=== PATIENT | female | born 1980 | race Asian ===

== ENCOUNTER → 2016-06-28 | Outpatient (CLI) | payer OTHER, MEDICAID ==
--- NOTE | 2016-06-28 17:29 | REP ---
OB ULTRASOUND: 06/28/2016 Real-time sonographic evaluation of the gravid uterus is performed. There is a single living intrauterine gestation with estimated gestational age of 23 weeks 2 days. EDC 10/23/2016. BPD 56 mm = 23 weeks 0 days HC 216 mm = 23 weeks 4 days AC 201 mm = 24 weeks 5 days Femur length 41 mm = 23 weeks 2 days HC/AC ratio 1.08 within normal range. Estimated weight 650 grams at the 67th percentile. Cervix is closed and measures 4.0 cm in length. heart rate 163 beats per minute. SEEN/GROSSLY UNREMARKABLE Lateral ventricles Yes Posterior fossa Yes Upper lip Yes Four-chamber heart Yes LVOT Possible bilateral choroid plexus cysts, 5x2mm RVOT Yes Stomach Yes Cord insertion Yes Three vessel cord Yes Kidneys Yes Bladder Yes Spine Yes position: Variable. Placenta: Posterior and grade 0 with no previa or abruption. Amniotic fluid: Within normal limits. Signed by Tyler Cao MD 06/29/2016 09:40 A
[2016-06-28 19:34] LABS: BASO % 0.3 % (0.0-1.0); EOS # 0.1 K/mm3 (0.0-0.50); EOS % 1.2 % (0.0-3.0); LARGE UNSTAINED CELL # 0.1 K/mm3 (0.0-0.4); LYMPH # 1.2 K/mm3 (1.5-4.5); LYMPH % 13.2 % (24.0-44.0); MEAN CORPUSCULAR HEMOGLOBIN 16.4 pg (27.0-33.0); MEAN CORPUSCULAR VOLUME 65.6 fl (80.0-96.0); MONO # 0.4 K/mm3 (0.0-0.8); MONO % 4.4 % (0.0-5.0); NEUTROPHILS # 6.9 K/mm3 (1.8-7.7); PLATELET COUNT, AUTOMATED 403 k/mm3 (150-450); RED CELL DISTRIBUTION WIDTH 25.4 % (11.5-14.5); WHITE BLOOD COUNT 8.6 K/mm3 (4.0-10.0)
[2016-06-28 19:41] LABS: ADD MORPHOLOGY? YES
[2016-06-28 20:42] LABS: HYPOCHROMASIA 3+; MICROCYTOSIS 3+
[2016-06-28 20:43] LABS: ANISOCYTOSIS 3+; POIKILOCYTOSIS 1+
[2016-06-28 20:44] LABS: OVALOCYTES 1+
[2016-06-30 11:16] LABS: HBsAg Prenatal NEGATIVE (NEGATIVE)
== END ==
LOC: M SMT 13:53
PROVIDERS: ATTEND Obstetrics & Gynecology
DX: Z36 Encounter for antenatal screening of mother (principal); Z3A.23 23 weeks gestation of pregnancy

== ENCOUNTER → 2016-06-30 | Outpatient (CLI) | payer OTHER ==
[2016-06-30 19:28] LABS: PERCENT SATURATION 30.8 % (13.2-37.4)
[2016-07-05 14:37] LABS: HEMOGLOBIN A 98.2 % (94.0-98.0)
== END ==
LOC: M SMT 12:38
PROVIDERS: ATTEND Obstetrics & Gynecology
DX: D64.9 Anemia, unspecified (principal)

== ENCOUNTER → 2016-07-19 | Outpatient (CLI) | payer OTHER ==
[2016-07-22 00:07] LABS: MUMPS VIRUS IgM ANTIBODY <0.80 AU (0.00-0.79)
== END ==
LOC: M SMT 11:34
PROVIDERS: ATTEND Family Medicine Adult Medicine
DX: Z34.82 Encounter for supervision of other normal pregnancy, second trimester (principal)

== ENCOUNTER → 2016-08-13 | Outpatient (CLI) | payer OTHER, SELFPAY ==
[2016-08-13 18:09] LABS: MEAN CORPUSCULAR HEMOGLOBIN 26.4 pg (27.0-33.0); MEAN CORPUSCULAR HGB CONC 30.6 g/dl (32.0-36.5); MEAN CORPUSCULAR VOLUME 86.3 fl (80.0-96.0); PLATELET COUNT, AUTOMATED 218 k/mm3 (150-450); RED CELL DISTRIBUTION WIDTH 24.9 % (11.5-14.5); WHITE BLOOD COUNT 7.7 K/mm3 (4.0-10.0)
[2016-08-13 21:46] LABS: ANISOCYTOSIS 4+; BASOPHILS 1 % (0-4); EOSINOPHILS 2 % (0-5); HYPOCHROMASIA 1+
[2016-08-13 21:47] LABS: ACANTHOCYTES 1+; OVALOCYTES 2+; POIKILOCYTOSIS 2+
== END ==
LOC: M SMT 10:32
PROVIDERS: ATTEND Advanced Practice Midwife
DX: Z36 Encounter for antenatal screening of mother (principal)

== ENCOUNTER → 2016-09-08 | Outpatient (REF) | payer MEDICAID | LOC: M LAB REF 17:25 | PROVIDERS: ATTEND Specialist | DX: Z36 Encounter for antenatal screening of mother (principal) ==

== ENCOUNTER → 2016-09-23 | Outpatient (REF) | payer MEDICAID ==
[~2016-09-23] MED LIST: ACET50TA PO; IBUP-1114 PO; IRON50TA PO; PRENTAB9 PO
== END ==
LOC: M LAB REF 13:05
PROVIDERS: ATTEND Advanced Practice Midwife
DX: Z34.83 Encounter for supervision of other normal pregnancy, third trimester (principal)

== ENCOUNTER → 2016-10-01 | Outpatient (REF) | payer MEDICAID, OTHER ==
[2016-10-01 18:25] LABS: BASO % 0.4 % (0.0-1.0); EOS # 0.1 K/mm3 (0.0-0.50); LARGE UNSTAINED CELL # 0.2 K/mm3 (0.0-0.4); LARGE UNSTAINED CELL % 1.6 % (0.0-4.0); LYMPH # 1.2 K/mm3 (1.5-4.5); LYMPH % 13.1 % (24.0-44.0); MEAN CORPUSCULAR HGB CONC 34.3 g/dl (32.0-36.5); MEAN CORPUSCULAR VOLUME 90.5 fl (80.0-96.0); MONO # 0.4 K/mm3 (0.0-0.8); MONO % 4.6 % (0.0-5.0); NEUTROPHILS # 7.5 K/mm3 (1.8-7.7); NEUTROPHILS % 79.2 % (36.0-66.0); PLATELET COUNT, AUTOMATED 175 k/mm3 (150-450); RED CELL DISTRIBUTION WIDTH 17.6 % (11.5-14.5); WHITE BLOOD COUNT 9.4 K/mm3 (4.0-10.0)
== END ==
LOC: M LABSMT 17:06
PROVIDERS: ATTEND Advanced Practice Midwife
DX: O99.013 Anemia complicating pregnancy, third trimester (principal); Z3A.00 Weeks of gestation of pregnancy not specified

== ENCOUNTER 2016-10-04 07:14 | Outpatient (CLI) | payer MEDICAID, OTHER ==
[~2016-10-04] VITALS: Ht 154.9 cm; Wt 64.0 kg
[2016-10-04] MEDS ORDERED: IRON50TA PO (07:21)
[2016-10-04] MEDS ORDERED: PRENTAB9 PO (07:21)
[2016-10-04 07:29] VITALS: BP 112/76
[2016-10-04] MEDS ORDERED: LACTATED RINGER'S 1000 ML IV STA (07:41)
[2016-10-04] MEDS ORDERED: PENICILLIN G POTASSIUM IV 5 MU in D5W MINI-BAG PLUS 100 ML IV STA (07:43)
[2016-10-04] MEDS ORDERED: LR 1,000 ML IV SCH (08:00)
[2016-10-04 08:12] LABS: MEAN CORPUSCULAR HEMOGLOBIN 31.5 pg (27.0-33.0); MEAN CORPUSCULAR HGB CONC 35.1 g/dl (32.0-36.5); MEAN CORPUSCULAR VOLUME 89.6 fl (80.0-96.0); RED CELL DISTRIBUTION WIDTH 17.7 % (11.5-14.5); WHITE BLOOD COUNT 8.6 K/mm3 (4.0-10.0)
[2016-10-04 08:59] VITALS: BP 111/75
[2016-10-04] MEDS ORDERED: BUTORPHANOL 2 MG/ML INJ (J0595) IV ONE (11:15)
[2016-10-04] MEDS ORDERED: PROMETHAZINE INJ 25 MG/ML VIAL (J2550) IV ONE (11:15)
[2016-10-04] MEDS: PENICILLIN G POTASSIUM IV 2.5 MU in D5W 100 ML IV SCH ×2 (12:19→16:06)
[2016-10-04 16:10] VITALS: BP 118/71
== END 2016-10-04 17:38 | disposition home or self-care (01) ==
LOC: M LDO 07:14
PROVIDERS: ATTEND Advanced Practice Midwife
DX: O62.0 Primary inadequate contractions (principal); Z3A.37 37 weeks gestation of pregnancy

== ENCOUNTER 2016-10-05 14:56 | Inpatient (IN) | payer OTHER ==
[~2016-10-05] VITALS: Ht 154.9 cm; Wt 65.0 kg
[2016-10-05] VITALS (21 sets, daily range): BP systolic 105–129; BP diastolic 52–84
[~2016-10-05 14:56] MED LIST changes: -ACET50TA PO; -IBUP-1114 PO
[2016-10-05] MEDS ORDERED: AMPICILLIN SOD 2 GM in D5W MINI-BAG PLUS 100 ML IV STA (15:38)
[2016-10-05 16:07] LABS: MEAN CORPUSCULAR HEMOGLOBIN 30.8 pg (27.0-33.0); MEAN CORPUSCULAR VOLUME 90.4 fl (80.0-96.0); RED CELL DISTRIBUTION WIDTH 17.6 % (11.5-14.5); WHITE BLOOD COUNT 8.7 K/mm3 (4.0-10.0)
[2016-10-05] MEDS ORDERED: LR 1,000 ML IV SCH (16:39)
[2016-10-05] MEDS ORDERED: FENTANYL 2MCG/ML ROPIVACAINE 0.2% IN 0.9% NACL 200ML IVBAG As Ordered ONE (16:47)
--- NOTE | 2016-10-05 16:49 | HPE ---
DATE OF ADMISSION: 10/05/2016 REASON FOR ADMISSION: Labor. HISTORY OF PRESENT ILLNESS: Ms. Mariee is a 35-year-old 2, Para 1 who presents at 37 weeks 3 days estimated gestational age by 23 week ultrasound who complains of contractions. Ms. Mariee was initially seen yesterday morning and was evaluated for several hours. She had initial cervical exam at 3 cm dilated, 80% effaced, -2 station and was monitored with no further change after 8 hours. She was discharged home. She reports that her contractions had spaced out, and she was able to sleep throughout the night. Earlier this morning, her contractions did return, and now increased in frequency to approximately every 2 minutes for the last 2 hours. She reports some bloody show but denies and vaginal bleeding or leakage of fluid. She reports active movement. Her course is remarkable for a late entry care, she entered care at 25 weeks to our practice. She also has a history of course of advanced maternal age. PAST MEDICAL HISTORY: None. PAST SURGICAL HISTORY: None. PAST OBSTETRICAL HISTORY: She is a 2, Para 1. She had one term vaginal delivery. SOCIAL HISTORY: Denies any alcohol, tobacco or drug use during her . MEDICATIONS: vitamins and iron. ALLERGIES: No known drug allergies. PHYSICAL EXAMINATION: Vital signs: Stable. She is afebrile. She has a category 1 heart tracing with contractions approximately every 2 minutes. General appearance: Appears to be uncomfortable contractions, but no acute distress. Lungs: Clear to auscultation bilaterally. Cardiovascular: Heart regular rate and rhythm. Abdomen: Soft, gravid, non-tender. Estimated weight 3100 grams. Cervical exam: She was 5 cm dilated, 90% effaced, -1 station with a bulging bag of membranes. LABS: Blood type B positive, antibody screen negative, Rubella is not immune, RPR is nonreactive, Hepatitis surface antigen is negative, HIV is negative, Hepatitis C is non reactive, Chlamydia and Gonorrhea screens are negative. She had a normal one hour Glucola. She is GBS positive. ASSESSMENT: 1. This patient is a 35-year-old 2 Para 1 that presents at 37 weeks and 4 days estimated gestational age in active labor. 2. Reassuring status. 3. GBS positive. PLAN: 1. Admit to labor and delivery. CBC, RPR type and screen. 2. Antibiotics for GBS prophylaxis. 3. Patient has been thoroughly counseled regarding to admission. I have discussed medications as well as procedures performed in labor and delivery. She has also been verbally consented for emergency surgery, blood products, anesthesia and desires to proceed with admission. 4. Anticipate spontaneous vaginal delivery. BRIDGET
[2016-10-05] MEDS ORDERED: ONDANSETRON 4MG/2ML VIAL (J2405) IV PRN (18:00)
[2016-10-05] MEDS ORDERED: NALOXONE INJ 0.4 MG/1 ML VIAL (J2310) IV PRN (18:00)
[2016-10-05] MEDS ORDERED: ePHEDrine SULFATE 25 MG/5 ML(5MG/ML) SYRINGE IV PRN (18:00)
[2016-10-05] MEDS ORDERED: FENTANYL/ROPIVACAINE/NACL BAG 200 ML EPIDURAL SCH (18:00)
[2016-10-05] MEDS ORDERED: REFRIGERATOR IV KEYS XX PRN (18:00)
[2016-10-05] MEDS ORDERED: LACTATED RINGER'S 1000 ML IV PRN (18:00)
[2016-10-05] MEDS ORDERED: EPIDURAL/PCA KEYS XX PRN (18:00)
[2016-10-05] MEDS ORDERED: EPIDURAL COMMENT XX SCH (18:00)
[2016-10-05] MEDS ORDERED: diphenhydrAMINE INJ 50MG/ML VIAL (J1200) IV PRN (18:00)
[2016-10-05] MEDS ORDERED: OXYTOCIN 30 UNITS IN 0.9% NaCl 500ML IV BAG (J2590) As Ordered ONE (18:52)
[2016-10-05] MEDS ORDERED: AMPICILLIN SOD 1 GM in D5W MINI-BAG PLUS 50 ML IV SCH (20:00)
[2016-10-05] MEDS ORDERED: ANUSOL HC CREAM 30GM TOP PRN (21:15)
[2016-10-05] MEDS ORDERED: METHYLERGONOVINE MALEATE 0.2 MG TAB PO PRN (21:15)
[2016-10-05] MEDS ORDERED: MEASLES,MUMPS,RUBELLA VACCINE INJ (MMR-II) (90707) SC SCH (21:15)
[2016-10-05] MEDS ORDERED: RHOGAM 300 MCG (1500 IU) INJ (J2790) IM SCH (21:15)
[2016-10-05] MEDS ORDERED: DOCUSATE SODIUM 100 MG CAP PO PRN (21:15)
[2016-10-05] MEDS ORDERED: DIBUCAINE 1% OINTMENT 30GM TOP PRN (21:15)
[2016-10-05] MEDS ORDERED: ACETAMINOPHEN 500 MG TAB PO PRN (21:15)
[2016-10-05] MEDS ORDERED: OXYTOCIN DRIP 30 UNITS in APPROPRIATE DILUENT 1 EA IV SCH (21:15)
[2016-10-05] MEDS ORDERED: MOM 30ML SUSPENSION UDC PO PRN (21:15)
[2016-10-05] MEDS: IBUPROFEN 800 MG TAB PO PRN (21:26)
--- NOTE | 2016-10-05 21:43 | DN ---
DATE: 10/05/2016 TIME OF : 2025 SCORES: 8 and 9 WEIGHT: 7 pounds 7 ounces, or 3428 grams. LACERATIONS: A second-degree midline laceration. ESTIMATED BLOOD LOSS: 300 mL. ANESTHESIA: Epidural. COUNTS: Five laparotomy sponges accounted for prior to and after delivery. Two sharps were removed from the delivery field. DELIVERY NOTE: On 10/05/2016 at 2025, Mrs. Mariee, a 35-year-old 2, now para 2, had a spontaneous vaginal delivery of a liveborn male infant. scores were 8 and 9. Weight was 7 pounds 7 ounces, 3428 grams. Head was delivered occiput posterior (OP) followed by delivery of left anterior shoulder, right posterior shoulder, and corpus. was then handed to mother with a good cry. Cord was clamped times two and was cut by the father of the baby under my direction. Cord blood was then obtained. Placenta was then drained and delivered grossly intact. A premix bag of 500 mL of normal saline with 30 units of Pitocin was then bolused along with uterine massage. The uterus was firm. On inspection, there was a second-degree midline laceration, which was repaired with 3-0 Vicryl Rapide. On reinspection, the cervix, vagina, perineum were grossly intact and hemostatic. Mother and baby are recovering in stable condition.
[2016-10-06] VITALS: BP 114/71
[2016-10-06 05:35] VITALS: BP 109/63
[2016-10-06] MEDS: PRENATAL VITAMINS CHEWABLE TABLET PO SCH (08:19)
[2016-10-06] MEDS: IBUPROFEN 800 MG TAB PO PRN ×2 (08:20→20:38)
[2016-10-06 18:07] VITALS: BP 122/71
[2016-10-07 05:56] VITALS: BP 111/64
[2016-10-07] MEDS: PRENATAL VITAMINS CHEWABLE TABLET PO SCH (08:12)
[2016-10-07] MEDS ORDERED: ACET50TA PO (09:44)
[2016-10-07] MEDS ORDERED: IBUP-1114 PO (09:44)
== END 2016-10-07 11:00 | disposition home or self-care (01) | DRG 560 ==
LOC: M LDO 14:56 → M LDI 15:32 → M OBS 23:53
PROVIDERS: ADMIT Obstetrics & Gynecology; ATTEND Obstetrics & Gynecology
PROC: 10E0XZZ Delivery of Products of Conception, External Approach (ICD-10-PCS; principal; 2016-10-05)
PROC: 0KQM0ZZ Repair Perineum Muscle, Open Approach (ICD-10-PCS; 2016-10-05)
DX: O99.824 Streptococcus B carrier state complicating childbirth (principal); Z37.0 Single live birth; Z3A.37 37 weeks gestation of pregnancy; Z79.899 Other long term (current) drug therapy; O70.1 Second degree perineal laceration during delivery